=== PATIENT | female | born 1935 | race Caucasian/White ===

== ENCOUNTER 2025-03-23 11:08 | Inpatient (IN) | payer MEDICAID ==
[~2025-03-23] VITALS: Ht 142.2 cm; Wt 66.2 kg
[2025-03-23] MEDS ORDERED: hydrALAZINE HCL IV 20 MG VIAL ONE ×2 (11:45→14:27)
[2025-03-23 11:46] LABS: PLATELET COUNT (AUTO) 159 K/uL (150-450); RED BLOOD CELL COUNT(AUTO) 3.84 MIL/uL (4.0-5.2); RED CELL DISTRIBUTION WIDTH 14.3 % (11.5-15.0); WHITE BLOOD COUNT (AUTO) 6.7 K/uL (4.3-11.0)
[2025-03-23] MEDS: hydrALAZINE HCL IV 20 MG VIAL IV ONE ×2 (11:49→14:30)
[2025-03-23 12:03] LABS: CALCIUM, SERUM 8.6 mg/dL (8.5-10.1); CREATININE 2.0 mg/dL (0.6-1.3); SODIUM SERUM 140 mmol/L (136-145); UREA NITROGEN, BLOOD 48 mg/dL (7-18)
[2025-03-23 12:05] LABS: INR 1.0 (0.91-1.10)
[2025-03-23 12:06] LABS: ASPARTATE AMINOTRANSFERASE 15 U/L (15-37); NT-PRO BNP 2150 pg/mL (0-125); TOTAL PROTEIN, SERUM 8.0 g/dL (6.4-8.2)
[2025-03-23] MEDS: IV NS 0.9% 1,000 ML BAG IV ONE (12:29)
[2025-03-23] MEDS ORDERED: FUROSEMIDE 20 MG/2 ML VIAL ONE (13:42)
[2025-03-23] MEDS ORDERED: SODIUM ZIRCONIUM CYCLOSILICATE 10 GM POWD.PACK ONE (13:43)
[2025-03-23] MEDS ORDERED: LOSA50TA39 PO (13:47)
[2025-03-23] MEDS ORDERED: ASPI-1420 PO (13:47)
[2025-03-23] MEDS: FUROSEMIDE 20 MG/2 ML VIAL IV ONE ×2 (13:48→16:21)
[2025-03-23] MEDS: SODIUM ZIRCONIUM CYCLOSILICATE 5 GM POWD.PACK PO ONE (13:55)
[2025-03-23] MEDS ORDERED: ASPIRIN 81 MG TAB.CHEW ONE (14:27)
[2025-03-23] MEDS: ASPIRIN 81 MG TAB.CHEW PO ONE (14:31)
[2025-03-23 16:03] VITALS: BP 159/75; TEMP 97.5; O2SAT 96
[2025-03-23] MEDS: HEPARIN SODIUM, PORCINE 5000 UNITS/1 ML VIAL SQ SCH (16:22)
[2025-03-23] MEDS ORDERED: ONDANSETRON HCL/PF 4 MG/2 ML VIAL IVP PRN (16:30)
[2025-03-23] MEDS ORDERED: DEXTROSE 50%-WATER 50 ML DISP.SYRIN IV PRN (16:30)
[2025-03-23] MEDS: BLOOD SUGAR DIAGNOSTIC 1 EACH STRIP VI SCH (17:23)
[2025-03-23] MEDS: INSULIN REGULAR, HUMAN 100 UNIT/ML 3 ML VIAL SQ PRN (17:27)
[2025-03-23 20:00] VITALS: BP 154/65; TEMP 98.6; O2SAT 98
[2025-03-23] MEDS: *INSULIN REGULAR(HUMULIN R)HUM 100 UNIT/ML VIAL SQ PRN (21:58)
[2025-03-24] VITALS: BP 159/70; TEMP 98.5; O2SAT 96
[2025-03-24 04:00] VITALS: BP 158/60; TEMP 97.3; O2SAT 94
[2025-03-24 07:27] LABS: PLATELET COUNT (AUTO) 151 K/uL (150-450); RED BLOOD CELL COUNT(AUTO) 3.78 MIL/uL (4.0-5.2); RED CELL DISTRIBUTION WIDTH 14.0 % (11.5-15.0); WHITE BLOOD COUNT (AUTO) 5.8 K/uL (4.3-11.0)
[2025-03-24 07:44] LABS: CALCIUM, SERUM 8.7 mg/dL (8.5-10.1); CREATININE 2.0 mg/dL (0.6-1.3); PHOSPHORUS 5.6 mg/dL (2.5-4.9); SODIUM SERUM 142.0 mmol/L (136-145); UREA NITROGEN, BLOOD 47.0 mg/dL (7-18)
[2025-03-24 07:51] LABS: LDL 128.0 mg/dL (0-99)
[2025-03-24 08:00] VITALS: BP 153/69; TEMP 99.1; O2SAT 94
[2025-03-24] MEDS: ASPIRIN EC 81 MG TABLET.DR PO SCH (08:12)
[2025-03-24] MEDS: ATORVASTATIN 10 MG TABLET PO SCH (09:58)
[2025-03-24 11:50] LABS: ASPARTATE AMINOTRANSFERASE 13.0 U/L (15-37); TOTAL PROTEIN, SERUM 7.3 g/dL (6.4-8.2)
[2025-03-24 12:00] VITALS: BP 165/67; TEMP 98.8; O2SAT 97
[2025-03-24 16:00] VITALS: BP_SYST 161; BP_SYST 165; BP_DIAS 67; BP_DIAS 71; TEMP 98.6; TEMP 98.8; O2SAT 93; O2SAT 97
[2025-03-24] MEDS: GABAPENTIN 300 MG CAPSULE PO SCH (19:03)
[2025-03-24] MEDS: ACYCLOVIR 800 MG TABLET PO SCH (19:03)
[2025-03-24 20:00] VITALS: BP 178/91; TEMP 98.8; O2SAT 95
[2025-03-24] MEDS: MAGNESIUM OXIDE 400 MG TABLET PO SCH (21:43)
[2025-03-25] VITALS: BP 155/67; TEMP 99; O2SAT 94
[2025-03-25 04:00] VITALS: BP 126/69; TEMP 99; O2SAT 94
[2025-03-25 07:27] LABS: CALCIUM, SERUM 8.5 mg/dL (8.5-10.1); CREATININE 2.9 mg/dL (0.6-1.3); PHOSPHORUS 5.9 mg/dL (2.5-4.9); SODIUM SERUM 139.0 mmol/L (136-145); UREA NITROGEN, BLOOD 60.0 mg/dL (7-18)
[2025-03-25 07:28] LABS: PLATELET COUNT (AUTO) 157 K/uL (150-450); RED BLOOD CELL COUNT(AUTO) 3.62 MIL/uL (4.0-5.2); RED CELL DISTRIBUTION WIDTH 13.9 % (11.5-15.0); WHITE BLOOD COUNT (AUTO) 5.6 K/uL (4.3-11.0)
[2025-03-25 08:00] VITALS: BP 144/67; TEMP 98.4; O2SAT 97
[2025-03-25] MEDS: ACYCLOVIR 200 MG CAPSULE PO SCH (08:29)
[2025-03-25] MEDS ORDERED: MAGNESIUM OXIDE 400 MG TABLET PO ONE (10:00)
[2025-03-25] MEDS: MAGNESIUM OXIDE 400 MG TABLET PO ONE (10:31)
[2025-03-25 12:00] VITALS: BP 148/56; TEMP 98.2; O2SAT 97
[2025-03-25] MEDS: IV NS 0.9% 1,000 ML IV PRN (13:33)
[2025-03-25 16:00] VITALS: BP 162/61; TEMP 98.4; O2SAT 97
[2025-03-25 20:00] VITALS: BP 144/58; TEMP 98.4; O2SAT 97
[2025-03-26] VITALS: BP 151/67; TEMP 98.6; O2SAT 97
[2025-03-26 03:07] LABS: PTH, INTACT 114 pg/mL (15-65)
[2025-03-26 04:00] VITALS: BP 144/64; TEMP 98.9; O2SAT 95
[2025-03-26 07:21] LABS: ASPARTATE AMINOTRANSFERASE 18.0 U/L (15-37); CALCIUM, SERUM 7.5 mg/dL (8.5-10.1); CREATININE 3.1 mg/dL (0.6-1.3); PHOSPHORUS 4.8 mg/dL (2.5-4.9); SODIUM SERUM 136.0 mmol/L (136-145); TOTAL PROTEIN, SERUM 6.6 g/dL (6.4-8.2); UREA NITROGEN, BLOOD 69.0 mg/dL (7-18)
[2025-03-26 08:00] VITALS: BP 118/49; TEMP 97.7; O2SAT 96
[2025-03-26 08:04] LABS: PLATELET COUNT (AUTO) 137 K/uL (150-450); RED BLOOD CELL COUNT(AUTO) 3.39 MIL/uL (4.0-5.2); RED CELL DISTRIBUTION WIDTH 13.7 % (11.5-15.0); WHITE BLOOD COUNT (AUTO) 5.1 K/uL (4.3-11.0)
[2025-03-26 12:00] VITALS: BP 176/75; TEMP 98.1; O2SAT 95
[2025-03-26 14:34] LABS: NEUTROPHILS % (MANUAL) 40 (42-76)
[2025-03-26 14:35] LABS: EOSINOPHILS % (MANUAL) 5 % (0-4); LYMPHOCYTES % (MANUAL) 40 % (16-48); MONOCYTES % (MANUAL) 15 % (0-11.0); PLATELET ESTIMATE ADEQUATE
[2025-03-26 16:00] VITALS: BP 166/63; TEMP 98.4; O2SAT 94
[2025-03-26 20:00] VITALS: BP 132/63; TEMP 98.6; O2SAT 95
[2025-03-26 22:06] LABS: HEPATITIS B CORE AB, IgM Negative (Negative); HEPATITIS B CORE AB, TOTAL Negative (Negative); HEPATITIS B SURFACE AB (QUAL) Non Reactive (.)
[2025-03-27 04:00] VITALS: BP 153/59; TEMP 98.4; O2SAT 93
[2025-03-27 08:00] VITALS: BP 170/57; TEMP 97.9; O2SAT 93
[2025-03-27 08:02] LABS: PLATELET COUNT (AUTO) 138 K/uL (150-450); RED BLOOD CELL COUNT(AUTO) 3.22 MIL/uL (4.0-5.2); RED CELL DISTRIBUTION WIDTH 13.8 % (11.5-15.0); WHITE BLOOD COUNT (AUTO) 5.0 K/uL (4.3-11.0)
[2025-03-27 08:38] LABS: CREATININE, URINE 19.4 MG/DL (30.0-125.0); URINE SODIUM, RANDOM 25.0 mmol/l (40-220); URINE TOTAL PROTEIN 14.6 mg/dL (0-11.9)
[2025-03-27 08:44] LABS: ASPARTATE AMINOTRANSFERASE 27.0 U/L (15-37); CALCIUM, SERUM 7.9 mg/dL (8.5-10.1); CREATININE 2.4 mg/dL (0.6-1.3); PHOSPHORUS 4.5 mg/dL (2.5-4.9); SODIUM SERUM 144.0 mmol/L (136-145); TOTAL PROTEIN, SERUM 6.4 g/dL (6.4-8.2); UREA NITROGEN, BLOOD 56.0 mg/dL (7-18)
[2025-03-27 15:07] LABS: *SPE A/G RATIO 1.0 (0.7-1.7); *SPE ALBUMIN 3.2 g/dL (2.9-4.4); *SPE ALPHA-1-GLOBULIN 0.3 g/dL (0.0-0.4); *SPE ALPHA-2-GLOBULIN 0.9 g/dL (0.4-1.0); *SPE BETA GLOBULIN 0.9 g/dL (0.7-1.3); *SPE GLOBULIN, TOTAL 3.2 g/dL (2.2-3.9); *SPE M-SPIKE Not Observed g/dL (Not Observed); *SPE PROTEIN TOTAL 6.4 g/dL (6.0-8.5); *SPEGAMMA GLOBULIN 1.1 g/dL (0.4-1.8)
[2025-03-27 16:00] VITALS: BP 162/59; TEMP 97.9; O2SAT 93
[2025-03-27 20:00] VITALS: BP 169/68; TEMP 98.1; O2SAT 97
[2025-03-28] VITALS (7 sets, daily range): BP systolic 144–197; BP diastolic 56–75; TEMP 97.5–98.4; O2SAT 94–96
[2025-03-28] MEDS: ACETAMINOPHEN 325 MG TABLET PO PRN (04:16)
[2025-03-28 07:39] LABS: PLATELET COUNT (AUTO) 145 K/uL (150-450); RED BLOOD CELL COUNT(AUTO) 3.05 MIL/uL (4.0-5.2); RED CELL DISTRIBUTION WIDTH 13.7 % (11.5-15.0); WHITE BLOOD COUNT (AUTO) 5.5 K/uL (4.3-11.0)
[2025-03-28 08:27] LABS: ASPARTATE AMINOTRANSFERASE 39.0 U/L (15-37); CALCIUM, SERUM 8.1 mg/dL (8.5-10.1); CREATININE 2.0 mg/dL (0.6-1.3); PHOSPHORUS 3.9 mg/dL (2.5-4.9); SODIUM SERUM 141.0 mmol/L (136-145); TOTAL PROTEIN, SERUM 6.6 g/dL (6.4-8.2); UREA NITROGEN, BLOOD 47.0 mg/dL (7-18)
[2025-03-28] MEDS: MAGNESIUM OXIDE 400 MG TABLET PO ONE (10:26)
[2025-03-28] MEDS ORDERED: HYDR-4077 PO (13:14)
[2025-03-28] MEDS ORDERED: ACYC200C31 PO (13:14)
[2025-03-28] MEDS: CLONIDINE HCL 0.1 MG TABLET PO ONE (18:03)
[2025-03-29 04:00] VITALS: BP 155/57; TEMP 98.2; O2SAT 96
[2025-03-29 07:22] LABS: PLATELET COUNT (AUTO) 154 K/uL (150-450); RED BLOOD CELL COUNT(AUTO) 3.04 MIL/uL (4.0-5.2); RED CELL DISTRIBUTION WIDTH 13.9 % (11.5-15.0); WHITE BLOOD COUNT (AUTO) 6.0 K/uL (4.3-11.0)
[2025-03-29 07:31] LABS: ASPARTATE AMINOTRANSFERASE 38.0 U/L (15-37); CALCIUM, SERUM 8.3 mg/dL (8.5-10.1); CREATININE 1.8 mg/dL (0.6-1.3); PHOSPHORUS 3.8 mg/dL (2.5-4.9); SODIUM SERUM 139.0 mmol/L (136-145); TOTAL PROTEIN, SERUM 6.6 g/dL (6.4-8.2); UREA NITROGEN, BLOOD 43.0 mg/dL (7-18)
[2025-03-29 08:00] VITALS: BP 161/55; TEMP 98.6; O2SAT 95
[2025-03-29] MEDS: MAGNESIUM OXIDE 400 MG TABLET PO ONE (10:14)
[2025-03-29 13:12] VITALS: BP 148/57
== END 2025-03-29 13:48 | disposition home or self-care (01) | DRG 383 ==
LOC: ER 11:12 → TELE1 14:37 → MEDSG1 03-26 20:29
PROVIDERS: ADMIT Nurse Practitioner Acute Care
DX: B02.9 Zoster without complications (principal); N17.0 Acute kidney failure with tubular necrosis; E11.22 Type 2 diabetes mellitus with diabetic chronic kidney disease; I16.9 Hypertensive crisis, unspecified; E87.5 Hyperkalemia; N18.9 Chronic kidney disease, unspecified; E83.42 Hypomagnesemia; Z87.891 Personal history of nicotine dependence; E87.70 Fluid overload, unspecified; E83.9 Disorder of mineral metabolism, unspecified; E11.65 Type 2 diabetes mellitus with hyperglycemia; N14.11 Contrast-induced nephropathy; T50.8X5A Adverse effect of diagnostic agents, initial encounter; Y92.89 Other specified places as the place of occurrence of the external cause; I12.9 Hypertensive chronic kidney disease with stage 1 through stage 4 chronic kidney disease, or unspecified chronic kidney disease
CPT/HCPCS: 36415; 71045-TC; 76770-TC; 80048-TC; 80053-TC; 80061-TC; 80076-TC; 82550-TC; 82570-TC; 82962-TC; 83735-TC; 83880; 83970; 84100-TC; 84155; 84165; 84300-TC; 84484-TC; 85025-TC; 85027-TC; 85730-TC; 86704; 86705; 86706; 86803; 87340; 93307-TC; A4223; G0378; J0360; J1644; J1815; J1938; J7030; J7050

== ENCOUNTER 2025-04-01 16:18 | Emergency (ER) | payer MEDICAID ==
[~2025-04-01] VITALS: Ht 160 cm; Wt 66.2 kg
[~2025-04-01 16:18] MED LIST: ACYC200C31 PO; ASPI-1420 PO; HYDR-4077 PO
[2025-04-01 16:45] VITALS: BP 194/88; TEMP 98.2
[2025-04-01] MEDS ORDERED: HYDR453. TP (17:03)
[2025-04-01 17:09] VITALS: O2SAT 97
== END 2025-04-01 17:10 | disposition home or self-care (01) ==
LOC: ER 16:21
DX: R21 Rash and other nonspecific skin eruption (principal); E11.9 Type 2 diabetes mellitus without complications; I11.0 Hypertensive heart disease with heart failure; I50.9 Heart failure, unspecified; Z79.624 Long term (current) use of inhibitors of nucleotide synthesis; Z79.82 Long term (current) use of aspirin; Z79.899 Other long term (current) drug therapy; Z87.448 Personal history of other diseases of urinary system; Z87.42 Personal history of other diseases of the female genital tract